=== PATIENT | female | born 1980 | race Caucasian/White ===

== ENCOUNTER 2018-10-15 02:44 | Inpatient (IN) | payer OTHER ==
[2018-10-15] MEDS ORDERED: Lactated Ringers 1000 ML Bag* 1,000 ML IV ONE ×2 (03:24→07:55)
[2018-10-15] MEDS ORDERED: Buffered Lidocaine 1% SYRIN* 1 ML/SYRINGE INTRADERM ONE (03:24)
--- NOTE | 2018-10-15 03:36 | HP ---
General Information - Reason for Visit contractions q 2-3 minutes - General Information Maternal Age: 37 Grav: 2 Para: 0 SAB: 1 Determined By: LMP Maternal Blood Type and Rh: O Positive - Results this Serology/RPR Result: Non-Reactive Rubella Result: Immune HBsAg Result: Negative HIV Result: Negative GBS Culture Result: Negative Past Medical History Pertinent Past Medical History: Non-Contributory Pertinent Past Surgical History: See Records Past Surgical History Comment: leep in past Pertinent Family History: Non-Contributory - Antepartal Records Antepartal Records: Reviewed, Uncomplicated Review of Systems Constitutional: Uncomfortable CV Complaint: No Respiratory: Shortness of Breath: No Genitourinary: No Leaking Fluid, Spotting Musculoskeletal: Contractions Neurological: No Headache Movement: Normal Exam Allergies/Adverse Reactions: Allergies No Known Allergies Allergy (Verified 05/05/14 14:03) - Measurements Height: 5 ft 5 in Weight: 212 lb Body Mass Index (BMI): 35.2 Pre- Weight: 155 lb - 57lbs - Exam Breast: Breast Exam Deferred Extremities: No Edema Heart: Normal Rhythm/Heart Sounds HEENT: No Significant Findings Lungs: Clear Bilaterally Rectal: Rectal Exam Deferred Reflexes: DTR 2+ Targeted Exam Findings Cervical Exam: 4cm Effacement: 80% Station: -2 Presenting Part: Vertex Membrane Status: Intact EFM Findings - External Monitor Findings Baseline Heart Rate: 140 External Monitor Findings: Accelerations Present, Variability Moderate Contractions: Regular, Moderate, 45-90 Seconds Assessment/Plan - Assessment posterm in labor - Obstetrical Risk Factors Obstetrical Risk Factors: Post-Dates - Plan Plan: Admit - Anticipate Vaginal Delivery
[2018-10-15] MEDS ORDERED: Lactated Ringers 1000 ML Bag* 1,000 ML IV SCH ×3 (04:00→15:00)
[2018-10-15] MEDS ORDERED: OBEPIDURAL* 250 ML EPIDURAL ONE (07:16)
[2018-10-15] MEDS ORDERED: Lidocaine/Epinephrin 1.5%/200* 5 ML AMP INJ ONE (07:17)
[2018-10-15 07:19] LABS: ABS Lymphocytes 1.1 10^3/ul (1.0-4.8); ABS Monocytes 0.7 10^3/ul (0-0.8); ABS Neutrophils 13.8 10^3/ul (1.5-7.7); Eosinophil % 0.1 %; Hematocrit 35 % (35-47); Hemoglobin 12.4 g/dL (12.0-16.0); Lymphocyte % 6.8 %; Mean Corpuscular HGB Conc 35 g/dL (31-36); Mean Corpuscular Hemoglobin 31 pg (27-31); Mean Corpuscular Volume 87 fL (80-97); Mean Platelet Volume 8.1 fL (7.4-10.4); Platelet Count 243 10^3/uL (150-450); Red Blood Count 4.05 10^6 /uL (3.70-4.87); Red Cell Distribution Width 13 % (10-15); White Blood Count 15.6 10^3/uL (3.5-10.8)
[2018-10-15 07:22] LABS: Urine Benzodiazepine Screen None Detected (None Detect); Urine Opiates Screen None Detected (None Detect)
[2018-10-15] MEDS ORDERED: Bupivacaine 0.25% SDV PF* 10 ML VIAL INJ ONE (07:24)
[2018-10-15] MEDS ORDERED: Famotidine TAB* 20 MG PO PRN (07:55)
[2018-10-15] MEDS ORDERED: Phenylephrine 40 MCG/ML SYRINGE IV PUSH PRN (07:55)
[2018-10-15] MEDS ORDERED: Sodium Citrate/Citric Acid* 15 ML UDC PO PRN (07:55)
[2018-10-15] MEDS ORDERED: EPHEDrine (Pressors)* 50 MG/ML VIAL IV PUSH PRN (07:55)
[2018-10-15] MEDS ORDERED: OBEPIDURAL* 250 ML EPIDURAL SCH (08:00)
--- NOTE | 2018-10-15 08:21 | PN ---
Progress Note - Progress Note Date of Service: 10/15/18 Note: S: Pt starting to feel relief from CEI placement. Feeling very tired O: BP 101/74 HR 97 T 98.3 SpO2 99% on RA FHT 135bpm. Moderate variability. +Accels. No decels UCs q 3-4 min VE deferred A: IUP at 41-1/7 in labor No evidence of metabolic acidemia P: Allow pt to rest s/p CEI. RN to place Lowry catheter. Will re-eval in 1-2 hours or sooner PRN
--- NOTE | 2018-10-15 08:47 | PN ---
Progress Note - Progress Note Date of Service: 10/15/18 Note: S: Paged to bedside by RN for evaluation of FHT O: Maternal VSS, afebrile FHT 135-140bpm. Moderate variability. Decel down to 70bpm x 3 min, recovered with maternal position change to left lateral. With the next contraction late decel noted to 110bpm. Third contraction variable decel down to 90bpm. Maternal position adjusted to full left side lye on hip, O2 by mask. Decels resolved UCs q 3-4 min VE: 4cm/90%/vtx -1, SROM to thick meconium after exam A: IUP at 41-1/7 Category II FHT Meconium P: Close monitoring of maternal/ status. Dr. Meade in house and aware of pt presence and condition.
--- NOTE | 2018-10-15 09:35 | PN ---
Progress Note - Progress Note Date of Service: 10/15/18 Note: S: Paged to bedside by RN to evaluate FHT tracing O: VSS, afebrile FHT 135bpm. Moderate variability. Following a 30 min recovery period decel down to 80bpm x 4 min noted. Recovered with mother in left lateral, O2 by mask, increased IV fluids. Baseline again maintained at 135bpm UCs q 3-5 VE deferred A: IUP at 41-1/7 in labor Category II FHT Meconium P: Given good recovery of FHT to baseline will continue to monitor for now. Pt and FOB counseled for possible pLTCS if FHT decels persist. They are in agreement
--- NOTE | 2018-10-15 11:10 | PN ---
Progress Note - Progress Note Date of Service: 10/15/18 Note: S: Following 50 min of Category I FHT another decel noted to 80bpm x 3 min, paged to bedside by RN. Mother in R lateral tilt with O2 by mask O: BP 132/73 HR 108 T 99.1 FHT 135bpm. Moderate variability. +Accels leading up to decel. Then decel x 3 min to 80bpm, recovered. Followed by slight decel down to 100bpm with next UCs, recovered. Then variable noted and baseline maintained. Variability maintained. UCs q 3-5 min VE 6-7cm/100%/vtx -2, +Caput, +Bloody show A: IUP at 41-1/7 in labor Category II FHT Meconium P: Continue maternal position changes, O2 by mask and IV fluids. Continue close monitoring of maternal/ status. Pt reassured by good cervical change/ progress in labor
--- NOTE | 2018-10-15 12:13 | PN ---
Progress Note - Progress Note Date of Service: 10/15/18 Note: S: Pt reports increased rectal pressure with UCs. Breathing and moaning through them. Bedside support by technical training instructor and RN O: BP 132/79 HR 111 FHT 140bpm. Moderate variability. +Accels. Some variable decels with UCs, recover the baseline UCs q 2-4 VE 8-9cm/100%/vtx -1 with caput A: IUP at 41-1/7 in labor Category II FHT Meconium P: In consultation with Dr. Meade will continue to monitor closely. In presence of moderate variability reasonable to continue to labor.
[2018-10-15] MEDS ORDERED: Oxytocin in LR* 0 UNITS/0 ML BAG IVPB ONE (13:37)
[2018-10-15] MEDS ORDERED: OXYTOCIN* 10 UNITS/ML 1 ML VIAL IM ONE (14:12)
[2018-10-15] MEDS ORDERED: OXYTOCIN* 10 UNITS/ML 1 ML VIAL ONE (14:12)
[2018-10-15] MEDS ORDERED: Glycerin ADULT SUPP PR PRN (14:12)
[2018-10-15] MEDS ORDERED: Lidocaine 1% INJ* 10 MG/ML 30 ML SDV ONE (14:13)
--- NOTE | 2018-10-15 14:20 | PROCNOTE ---
[facility] [place] [facility]: Delivery Note - Delivery A Date of : 10/15/18 Time of : 13:28 [place] Sex: Male - "Tonya" Weight at : 6 lb 11 oz Score 1 Minute: 3 Score 5 Minutes: 8 Gestational Age in Weeks and Days at Delivery: 41 Weeks and 1 Days Delivery Method: Spontaneous Vaginal Labor: Spontaneous Did Patient attempt ?: N/A, No Previous Amniotic Fluid: Meconium Estimated Blood Loss: 300 Anesthesia/Analgesia: CEI for Labor - placed by Dr. Snyder Delivered By: Aston Franz - Nursery Level of Nursery: NICU - Perineum Perineal Injury: 2nd Degree - Deep interrupted stitches with 3-0 Vicryl and remainder of repair with 3-0 Rapide. Anatomy restored and good hemostasis achieved. Pt tolerated well under local infiltration 1% lidocaine and epidural analgesia Perineal Repair: By Delivering Practioner - Events Delivery Events of Note: Pitocin Only After Delivery - Additional Delivery Notes Additional Delivery Notes: Pt admitted in labor. Received epidural per preference with excellent relief. Spontaneous rupture of membranes to thick meconium. Category II FHT throughout active labor. Moderate variability maintained. O2 by mask, increased IV fluids with frequent maternal position changes FHT always returned to baseline with good recovery. Length of active phase 5 hours, 8 min. Pushed x 23 min. With pushing FHT down in the 80's-90's. Dr. Meade and neonatology paged to bedside for delivery. liveborn male. Slow, controlled delivery of head. OA to JEN. Shoulders followed easily. [place] initially stunned. Cord milked per waiting pilot plant supervisor, clamped and cut. [place] to warmer for evaluation. Apgars 3/8. transported to NICU for further evaluation. Spontaneous delivery intact placenta. Membranes complete. Fundus firm to massage. 10 units IM pitocin given prophylactically. Repair of midline 2nd degree as above. EBL 300mL. At time of note mother and in stable condition. Anticipate return of infant to bedside at several hours old per pilot plant supervisor. Will support efforts of mother.
[2018-10-15] MEDS: Dibucaine 1% 28.35 GM TUBE PR PRN (15:28)
[2018-10-15] MEDS: Witch Hazel PAD* JAR TOPICAL PRN (15:28)
[2018-10-15] MEDS: Ibuprofen TAB* 600 MG PO PRN ×2 (16:43→22:46)
[2018-10-15] MEDS ORDERED: Simethicone TAB* 80 MG TAB.CHEW PO SCH (17:30)
[2018-10-15] MEDS: Docusate CAP* 100 MG PO SCH (20:38)
[2018-10-16] MEDS: Ibuprofen TAB* 600 MG PO PRN ×3 (05:33→22:17)
[2018-10-16] MEDS: Docusate CAP* 100 MG PO SCH ×3 (08:37→22:17)
[2018-10-16] MEDS: Witch Hazel PAD* JAR TOPICAL PRN (08:37)
[2018-10-16] MEDS: Dibucaine 1% 28.35 GM TUBE PR PRN (08:37)
[2018-10-16] MEDS ORDERED: Ferrous Gluconate TAB* 324 MG TAB PO SCH (09:00)
[2018-10-16 09:23] LABS: ABS Basophils 0.1 10^3/ul (0-0.2); ABS Eosinophils 0.1 10^3/ul (0-0.6); ABS Lymphocytes 1.5 10^3/ul (1.0-4.8); ABS Monocytes 0.7 10^3/ul (0-0.8); ABS Neutrophils 11.4 10^3/ul (1.5-7.7); Eosinophil % 0.9 %; Hematocrit 32 % (35-47); Hemoglobin 10.9 g/dL (12.0-16.0); Mean Corpuscular HGB Conc 34 g/dL (31-36); Mean Corpuscular Hemoglobin 30 pg (27-31); Mean Corpuscular Volume 88 fL (80-97); Mean Platelet Volume 7.8 fL (7.4-10.4); Platelet Count 210 10^3/uL (150-450); Red Blood Count 3.59 10^6 /uL (3.70-4.87); Red Cell Distribution Width 14 % (10-15); White Blood Count 13.8 10^3/uL (3.5-10.8)
[2018-10-16] MEDS: Acetaminophen TAB* 325 MG PO PRN ×2 (09:37→13:32)
[2018-10-17] MEDS: Ibuprofen TAB* 600 MG PO PRN (05:54)
[2018-10-17] MEDS: Docusate CAP* 100 MG PO SCH (08:33)
[2018-10-17 08:53] VITALS: BP 116/68
== END 2018-10-17 13:55 | disposition home or self-care (01) | DRG 807 ==
LOC: MCHOBOUT 02:44 → MCHOB 03:31
PROVIDERS: ADMIT Midwife; ATTEND Midwife
PROC: 10E0XZZ Delivery of Products of Conception, External Approach (ICD-10-PCS; principal; 2018-10-15)
PROC: 0KQM0ZZ Repair Perineum Muscle, Open Approach (ICD-10-PCS; 2018-10-15)
DX: O48.0 Post-term pregnancy (principal); Z37.0 Single live birth; Z3A.41 41 weeks gestation of pregnancy; O77.0 Labor and delivery complicated by meconium in amniotic fluid; O70.1 Second degree perineal laceration during delivery; O71.82 Other specified trauma to perineum and vulva; O76 Abnormality in fetal heart rate and rhythm complicating labor and delivery; F10.21 Alcohol dependence, in remission
CPT/HCPCS: 36415; 80307; 85025; 86850; 86900; 86901; A9270-GY; J2590; J3490